=== PATIENT | male | born 1960 | race Asian ===

== ENCOUNTER 2022-10-28 03:22 | Emergency (ER) | payer OTHER ==
[~2022-10-28] VITALS: Ht 180.3 cm; Wt 91.0 kg
[2022-10-28 03:27] VITALS: BP 151/101
[2022-10-28] MEDS ORDERED: ACETAMINOPHEN 500 MG TABLET PO ONE (04:00)
== END 2022-10-28 04:17 | disposition home or self-care (01) ==
LOC: EMS 03:23
DX: S05.92XA Unspecified injury of left eye and orbit, initial encounter (principal); F17.210 Nicotine dependence, cigarettes, uncomplicated; X58.XXXA Exposure to other specified factors, initial encounter; Y93.89 Activity, other specified; Y92.89 Other specified places as the place of occurrence of the external cause; Y99.8 Other external cause status
CPT/HCPCS: 99283

== ENCOUNTER 2025-03-25 11:59 | Emergency (ER) | payer MEDICARE ==
[~2025-03-25] VITALS: Ht 177.8 cm; Wt 90.9 kg
[~2025-03-25 11:59] MED LIST: FINA-27 PO; TAMS0.4C94 PO
[2025-03-25 12:36] VITALS: TEMP 98.8
[2025-03-25 13:33] LABS: APPEARANCE,URINE HAZY (CLEAR); GLUCOSE, URINE (UA) NEGATIVE (NEGATIVE); LEUKOCYTE ESTERASE ,URINE SMALL (NEGATIVE); NITRATE,URINE NEGATIVE (NEGATIVE); OCCULT BLOOD,URINE LARGE (NEGATIVE); SPECIFIC GRAVITIY, URINE 1.019 (1.003-1.030)
[2025-03-25 13:45] LABS: SULFOSALICYLIC ACID,URINE 3+ (Negative)
[2025-03-25 15:43] LABS: PLATELET COUNT (AUTO) 317 K/uL (150-450); RED BLOOD CELL COUNT(AUTO) 4.70 MIL/uL (4.50-5.90); RED CELL DISTRIBUTION WIDTH 13.3 % (11.5-14.5); WHITE BLOOD COUNT (AUTO) 11.5 K/uL (4.5-11.0)
[2025-03-25 15:46] LABS: CALCIUM, TOTAL 8.9 mg/dL (8.8-10.5); CREATININE 1.22 mg/dL (0.60-1.30); GLOMERULAR FILTR. RATE CALC 59.0 mL/min (>60); GLUCOSE,RANDOM 91.0 mg/dL (70-110); SODIUM SERUM 137.0 mmol/L (136-145); UREA NITROGEN, BLOOD 18.0 mg/dL (7-18)
[2025-03-25] MEDS ORDERED: PRED-554 PO (20:26)
[2025-03-25] MEDS ORDERED: CEPH-558 PO (20:26)
[2025-03-25 20:55] VITALS: BP 129/87; PULSE 90; RESP 18; O2SAT 99
== END 2025-03-25 22:59 | disposition home or self-care (01) ==
LOC: EMS 12:07
DX: N30.91 Cystitis, unspecified with hematuria (principal); I10 Essential (primary) hypertension; F17.210 Nicotine dependence, cigarettes, uncomplicated; Z79.899 Other long term (current) drug therapy
CPT/HCPCS: 74176; 80048; 81001; 81002; 85025; 87077; 87086; 87186; 99284

== ENCOUNTER 2025-04-01 17:04 | Emergency (ER) | payer MEDICARE ==
[~2025-04-01] VITALS: Ht 177.8 cm; Wt 91.0 kg
[~2025-04-01 17:04] MED LIST changes: +CEPH-558 PO; +PRED-554 PO
[2025-04-01 17:22] VITALS: BP 130/88; PULSE 93; RESP 18; TEMP 97.9; O2SAT 99
[2025-04-01] MEDS: LORazepam 2 MG/ML VIAL IM ONE (19:46)
[2025-04-01 20:02] LABS: PLATELET COUNT (AUTO) 379 K/uL (150-450); RED BLOOD CELL COUNT(AUTO) 4.70 MIL/uL (4.50-5.90); RED CELL DISTRIBUTION WIDTH 13.2 % (11.5-14.5); WHITE BLOOD COUNT (AUTO) 12.0 K/uL (4.5-11.0)
[2025-04-01 20:09] LABS: CALCIUM, TOTAL 9.2 mg/dL (8.8-10.5); CREATININE 1.38 mg/dL (0.60-1.30); GLOMERULAR FILTR. RATE CALC 52.0 mL/min (>60); GLUCOSE,RANDOM 101.0 mg/dL (70-110); SODIUM SERUM 144.0 mmol/L (136-145); UREA NITROGEN, BLOOD 30.0 mg/dL (7-18)
[2025-04-01] MEDS ORDERED: TAMS0.4C94 PO (20:13)
== END 2025-04-01 20:30 | disposition home or self-care (01) ==
LOC: EMS 17:04
DX: F41.9 Anxiety disorder, unspecified (principal); N40.1 Benign prostatic hyperplasia with lower urinary tract symptoms; I10 Essential (primary) hypertension; F17.210 Nicotine dependence, cigarettes, uncomplicated; Z79.52 Long term (current) use of systemic steroids
CPT/HCPCS: 99284; 80048; 85025; 36415; 51702; 96372; J2060

== ENCOUNTER 2025-05-23 15:22 | Emergency (ER) | payer MEDICARE ==
[~2025-05-23] VITALS: Ht 177.8 cm; Wt 88.6 kg
[2025-05-23 15:28] VITALS: BP 143/88; PULSE 107; RESP 16; TEMP 97.7; O2SAT 96
[2025-05-23 16:51] LABS: CALCIUM, TOTAL 8.8 mg/dL (8.8-10.5); CREATININE 1.00 mg/dL (0.60-1.30); GLOMERULAR FILTR. RATE CALC > 60 mL/min (>60); GLUCOSE,RANDOM 114 mg/dL (70-110); SODIUM SERUM 141 mmol/L (136-145); UREA NITROGEN, BLOOD 22 mg/dL (7-18)
[2025-05-23 16:52] LABS: PLATELET COUNT (AUTO) 272 K/uL (150-450); RED BLOOD CELL COUNT(AUTO) 4.80 MIL/uL (4.50-5.90); RED CELL DISTRIBUTION WIDTH 13.3 % (11.5-14.5); WHITE BLOOD COUNT (AUTO) 9.6 K/uL (4.5-11.0)
[2025-05-23 16:54] LABS: APPEARANCE,URINE TURBID (CLEAR); GLUCOSE, URINE (UA) NEGATIVE (NEGATIVE); LEUKOCYTE ESTERASE ,URINE LARGE (NEGATIVE); NITRATE,URINE POSITIVE (NEGATIVE); OCCULT BLOOD,URINE NEGATIVE (NEGATIVE); SPECIFIC GRAVITIY, URINE 1.021 (1.003-1.030)
[2025-05-23 17:03] LABS: LACTIC ACID 2.0 mmol/L (0.4-2.0)
[2025-05-23 17:26] LABS: SQUAMOUS EPITHELIAL CELL,UR Few /LPF (None Seen)
[2025-05-23 17:27] LABS: SULFOSALICYLIC ACID,URINE Trace (Negative)
[2025-05-23] MEDS ORDERED: CEPH-558 PO (17:50)
[2025-05-23] MEDS: CEPHALEXIN MONOHYDRATE 500 MG CAPSULE PO ONE (18:02)
== END 2025-05-23 18:08 | disposition home or self-care (01) ==
LOC: EMS 15:22
DX: R33.8 Other retention of urine (principal); N39.0 Urinary tract infection, site not specified; I10 Essential (primary) hypertension; F17.210 Nicotine dependence, cigarettes, uncomplicated; Z79.899 Other long term (current) drug therapy
CPT/HCPCS: 51702; 80048; 81001; 81002; 83605; 85025; 87040; 87077; 87086; 87186; 99284